=== PATIENT | female | born 1950 | race Caucasian/White ===

== ENCOUNTER 2017-03-27 17:44 | Emergency (ER) | payer OTHER ==
[~2017-03-27] VITALS: Ht 157.5 cm; Wt 54.4 kg
[2017-03-27] MEDS ORDERED: HYDROCODONE-AP1 EAC6 PO (19:04)
[2017-03-27 19:16] VITALS: BP 146/74
== END 2017-03-27 19:17 | disposition home or self-care (01) ==
LOC: ER 17:44
DX: S29.9XXA Unspecified injury of thorax, initial encounter (principal); S16.1XXA Strain of muscle, fascia and tendon at neck level, initial encounter; Z88.8 Allergy status to other drugs, medicaments and biological substances; V89.2XXA Person injured in unspecified motor-vehicle accident, traffic, initial encounter; Y93.89 Activity, other specified; Y92.89 Other specified places as the place of occurrence of the external cause; Y99.8 Other external cause status

== ENCOUNTER → 2020-03-21 | Outpatient (CLI) | payer OTHER ==
[~2020-03-21] MED LIST: HYDROCODONE-AP1 EAC6 PO
== END ==
LOC: SJCVCIMAG 02-23 07:48
PROVIDERS: ATTEND Internal Medicine
DX: I08.1 Rheumatic disorders of both mitral and tricuspid valves (principal); I31.3 Pericardial effusion (noninflammatory); I49.3 Ventricular premature depolarization; E78.5 Hyperlipidemia, unspecified; R00.2 Palpitations

== ENCOUNTER → 2020-03-23 | Outpatient (CLI) | payer OTHER | LOC: SJCVCIMAG 11:07 | PROVIDERS: ATTEND Internal Medicine | DX: I34.0 Nonrheumatic mitral (valve) insufficiency (principal); R06.00 Dyspnea, unspecified ==

== ENCOUNTER → 2020-06-25 | Outpatient (CLI) | payer OTHER | LOC: SJCVC 10:30 | PROVIDERS: ATTEND Internal Medicine | DX: Z51.81 Encounter for therapeutic drug level monitoring (principal); E78.5 Hyperlipidemia, unspecified; Z79.01 Long term (current) use of anticoagulants; Z79.899 Other long term (current) drug therapy ==

== ENCOUNTER → 2020-06-27 | Outpatient (CLI) | payer OTHER | LOC: SJCVC 09:59 | PROVIDERS: ATTEND Internal Medicine | DX: I34.0 Nonrheumatic mitral (valve) insufficiency (principal); E78.5 Hyperlipidemia, unspecified; Z82.49 Family history of ischemic heart disease and other diseases of the circulatory system; Z79.82 Long term (current) use of aspirin; Z79.01 Long term (current) use of anticoagulants; Z79.899 Other long term (current) drug therapy ==

== ENCOUNTER → 2020-07-02 | Outpatient (CLI) | payer OTHER | LOC: SJCVC 09:39 | PROVIDERS: ATTEND Internal Medicine | DX: Z51.81 Encounter for therapeutic drug level monitoring (principal); E78.5 Hyperlipidemia, unspecified; I31.3 Pericardial effusion (noninflammatory); Z79.01 Long term (current) use of anticoagulants ==

== ENCOUNTER 2020-07-03 11:19 | Emergency (ER) | payer OTHER ==
[~2020-07-03] VITALS: Ht 160 cm; Wt 56.7 kg
[2020-07-03 12:19] LABS: HEMATOCRIT 36.7 % (37.0-47.0); MCH 27.3 pg (26.0-34.0); MCHC 32.8 g/dL (28.0-37.0); MCV 83.2 fL (80.0-100.0); RBC 4.42 mil/uL (4.20-5.00); RDW 14.7 % (10.5-14.5)
[2020-07-03 12:32] LABS: CALCIUM 9.7 mg/dL (8.5-10.1); CREATININE 0.8 mg/dL (0.6-1.0); POTASSIUM 4.2 mmol/L (3.5-5.1)
[2020-07-03 12:33] LABS: INR 1.4
[2020-07-03 15:01] VITALS: BP 136/67
== END 2020-07-03 15:03 | disposition home or self-care (01) ==
LOC: ER 11:19
PROVIDERS: Physician Assistant
DX: R51 Headache (principal); R79.1 Abnormal coagulation profile; Z79.899 Other long term (current) drug therapy; Z88.8 Allergy status to other drugs, medicaments and biological substances

== ENCOUNTER → 2020-07-04 | Outpatient (CLI) | payer OTHER | LOC: SJCVCIMAG | PROVIDERS: ATTEND Internal Medicine | DX: I08.1 Rheumatic disorders of both mitral and tricuspid valves (principal); Z79.01 Long term (current) use of anticoagulants; Z98.890 Other specified postprocedural states; Z79.899 Other long term (current) drug therapy ==

== ENCOUNTER → 2020-07-09 | Outpatient (CLI) | payer OTHER | LOC: SJCVC 13:37 | PROVIDERS: ATTEND Internal Medicine | DX: Z51.81 Encounter for therapeutic drug level monitoring (principal); E78.5 Hyperlipidemia, unspecified; Z98.890 Other specified postprocedural states; Z79.01 Long term (current) use of anticoagulants ==

== ENCOUNTER → 2020-07-12 | Outpatient (CLI) | payer OTHER | LOC: SJCVC 11:57 | PROVIDERS: ATTEND Internal Medicine | DX: Z51.81 Encounter for therapeutic drug level monitoring (principal); E78.5 Hyperlipidemia, unspecified; Z79.01 Long term (current) use of anticoagulants; Z79.899 Other long term (current) drug therapy ==

== ENCOUNTER → 2020-07-16 | Outpatient (CLI) | payer OTHER | LOC: SJCVC 11:04 | PROVIDERS: ATTEND Internal Medicine | DX: I49.3 Ventricular premature depolarization (principal); E78.5 Hyperlipidemia, unspecified; Z82.49 Family history of ischemic heart disease and other diseases of the circulatory system; Z79.82 Long term (current) use of aspirin; Z79.01 Long term (current) use of anticoagulants; Z98.890 Other specified postprocedural states; Z79.899 Other long term (current) drug therapy ==

== ENCOUNTER → 2020-07-23 | Outpatient (CLI) | payer OTHER | LOC: SJCVC 15:32 | PROVIDERS: ATTEND Internal Medicine | DX: Z51.81 Encounter for therapeutic drug level monitoring (principal); E78.5 Hyperlipidemia, unspecified; Z98.890 Other specified postprocedural states; Z79.01 Long term (current) use of anticoagulants; Z79.899 Other long term (current) drug therapy ==

== ENCOUNTER → 2020-07-30 | Outpatient (CLI) | payer OTHER | LOC: SJCVC 10:43 | PROVIDERS: ATTEND Internal Medicine | DX: Z51.81 Encounter for therapeutic drug level monitoring (principal) ==

== ENCOUNTER → 2020-08-06 | Outpatient (CLI) | payer OTHER | LOC: SJCVC 10:44 | PROVIDERS: ATTEND Internal Medicine | DX: Z51.81 Encounter for therapeutic drug level monitoring (principal); Z79.01 Long term (current) use of anticoagulants ==

== ENCOUNTER → 2020-08-13 | Outpatient (CLI) | payer OTHER | LOC: SJCVC 12:20 | PROVIDERS: ATTEND Internal Medicine | DX: Z51.81 Encounter for therapeutic drug level monitoring (principal); E78.5 Hyperlipidemia, unspecified; Z79.01 Long term (current) use of anticoagulants; Z79.899 Other long term (current) drug therapy ==

== ENCOUNTER → 2020-08-20 | Outpatient (CLI) | payer OTHER | LOC: SJCVC 14:33 | PROVIDERS: ATTEND Internal Medicine | DX: Z51.81 Encounter for therapeutic drug level monitoring (principal); E78.5 Hyperlipidemia, unspecified; Z98.890 Other specified postprocedural states; Z79.01 Long term (current) use of anticoagulants; Z79.899 Other long term (current) drug therapy ==

== ENCOUNTER → 2020-09-03 | Outpatient (CLI) | payer OTHER | LOC: SJCVC 11:40 | PROVIDERS: ATTEND Internal Medicine | DX: Z51.81 Encounter for therapeutic drug level monitoring (principal); E78.5 Hyperlipidemia, unspecified; Z98.890 Other specified postprocedural states; Z79.01 Long term (current) use of anticoagulants; Z79.899 Other long term (current) drug therapy ==

== ENCOUNTER → 2020-10-18 | Outpatient (CLI) | payer OTHER | LOC: SJCVC 10:18 | PROVIDERS: ATTEND Internal Medicine | DX: I34.1 Nonrheumatic mitral (valve) prolapse (principal); I49.3 Ventricular premature depolarization; E78.5 Hyperlipidemia, unspecified; Z98.890 Other specified postprocedural states; Z79.82 Long term (current) use of aspirin; Z79.899 Other long term (current) drug therapy; Z88.8 Allergy status to other drugs, medicaments and biological substances ==

== ENCOUNTER → 2021-04-19 | Outpatient (CLI) | payer OTHER | LOC: SJCVC 15:20 | PROVIDERS: ATTEND Internal Medicine | DX: I34.1 Nonrheumatic mitral (valve) prolapse (principal); I49.3 Ventricular premature depolarization; E78.5 Hyperlipidemia, unspecified; Z95.2 Presence of prosthetic heart valve; Z88.8 Allergy status to other drugs, medicaments and biological substances; Z98.890 Other specified postprocedural states; Z79.899 Other long term (current) drug therapy; Z82.49 Family history of ischemic heart disease and other diseases of the circulatory system ==

== ENCOUNTER → 2021-10-23 | Outpatient (CLI) | payer OTHER | LOC: SJCVCIMAG 06:37 | PROVIDERS: ATTEND Internal Medicine | DX: R94.31 Abnormal electrocardiogram [ECG] [EKG] (principal); I07.1 Rheumatic tricuspid insufficiency; E78.5 Hyperlipidemia, unspecified; Z98.890 Other specified postprocedural states; Z88.8 Allergy status to other drugs, medicaments and biological substances; Z79.899 Other long term (current) drug therapy; Z95.4 Presence of other heart-valve replacement; Z82.49 Family history of ischemic heart disease and other diseases of the circulatory system ==